=== PATIENT | female | born 1980 | race African-American/Black ===

== ENCOUNTER → 2018-01-30 14:07 | Outpatient (CLI) | payer MEDICARE, MEDICAID | END | disposition home or self-care (01) | LOC: D.MRI 14:07 | DX: M54.5 Low back pain (principal) ==

== ENCOUNTER 2021-01-26 10:28 | Emergency (ER) | payer MEDICARE, MEDICAID ==
[~2021-01-26] VITALS: Ht 160 cm; Wt 81.8 kg
[2021-01-26 10:33] VITALS: BP 126/67; Ht 160 cm; Wt 81.8 kg
[2021-01-26] MEDS ORDERED: NAPROSYN500 MG PO (10:53)
== END 2021-01-26 11:00 | disposition home or self-care (01) ==
LOC: D.ER 10:28
DX: M25.562 Pain in left knee (principal); I10 Essential (primary) hypertension; Z72.0 Tobacco use